=== PATIENT | female | born 1990 | race Caucasian/White ===

== ENCOUNTER 2019-05-17 11:01 | Emergency (ER) | payer MEDICAID ==
[~2019-05-17] VITALS: Ht 162.6 cm; Wt 76.0 kg
[2019-05-17 15:21] VITALS: BP 117/69
== END 2019-05-17 15:23 | disposition home or self-care (01) ==
LOC: ED 12:58
DX: S30.1XXA Contusion of abdominal wall, initial encounter (principal); S30.811A Abrasion of abdominal wall, initial encounter; S30.0XXA Contusion of lower back and pelvis, initial encounter; S70.02XA Contusion of left hip, initial encounter; F17.210 Nicotine dependence, cigarettes, uncomplicated; V03.99XA Pedestrian with other conveyance injured in collision with car, pick-up truck or van, unspecified whether traffic or nontraffic accident, initial encounter; Y93.89 Activity, other specified; Y92.410 Unspecified street and highway as the place of occurrence of the external cause; Y99.8 Other external cause status
CPT/HCPCS: 36415; 72131; 74177; 80048; 82040; 84703; 85025; 96374; 96375; 99284; J2270; J2405

== ENCOUNTER 2019-09-25 12:43 | Emergency (ER) | payer MEDICAID ==
[~2019-09-25] VITALS: Ht 162.6 cm; Wt 80.0 kg
[~2019-09-25 12:43] MED LIST: ABILIFY; AMOX-291 PO; Depakote; IBUP-1222 PO; LAMO25TA5 PO; LAMOTRIGINE; LEVE500T22 PO; PHEN30CA PO; Testosterone
[2019-09-25 12:48] VITALS: BP 105/60
[2019-09-25] MEDS ORDERED: LAMO150T3 PO (12:56)
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
[2019-09-25] MEDS ORDERED: LAMOTRIGINE 100 MG TABLET PO ONE (13:30)
== END 2019-09-25 14:26 | disposition home or self-care (01) ==
LOC: ED 13:35
DX: G40.309 Generalized idiopathic epilepsy and epileptic syndromes, not intractable, without status epilepticus (principal)
CPT/HCPCS: 99283

== ENCOUNTER 2019-10-13 19:45 | Emergency (ER) | payer SELFPAY ==
[~2019-10-13] VITALS: Ht 170.2 cm; Wt 81.1 kg
[~2019-10-13 19:45] MED LIST changes: +LAMO150T3 PO
--- NOTE | 2019-10-13 20:19 | NUR ---
THIS IS A 28 YEAR OLD FEMALE THAT HAD A WITNESSED [facility]URE AT [facility]. ACCORDING TO EMS BYSTANDERS ON SCENE REPORTED THE EVENT LASTING 5 SECONDS. EMS ARRIVED ON SCENE TO FIND A PT AXOX3 AND REPORTING A SEIZURE. PT HAS HX OF SEIZURES AND IS NON-COMPLIENT WITH MEDICATIONS. ACCORDING TO EMS AND PT SHE WAS IN THE PROCESS OF GETTING INTO A GROUP HOUSE AND DECIDED TO BACK OUT SHE WANTS TO BE MORE INDEPENDENT. PT STATES SHE REALIZES NOW SHE NEEDS TO BE IN A SKILLED NURSING AND A STATE SW IS WORKING WITH HER ON PLACEMENT.
[2019-10-13] MEDS ORDERED: LAMOTRIGINE 200 MG TABLET PO ONE (21:00)
--- NOTE | 2019-10-13 21:17 | NUR ---
SPOKE WITH PHARMACY REGARDING LAMICTAL DOSAGE. PER PHARMACY 200MG IS UNSAFE TO RX PT AND PT WOULD NEED TO START THE STARTER PACK AGAIN STARTING AT 25 MG FOR 2 WEEKS THEN TAPER UP.
[2019-10-13] MEDS: LAMOTRIGINE 25 MG TABLET PO ONE (21:30)
[2019-10-13 21:33] VITALS: BP 135/99
--- NOTE | 2019-10-13 22:00 | NUR ---
REPORT FROM LES KRAMER. PT SITTING UP IN RBURNSIDE, DROWSY. EASILY ARROUSABLE TO VOICE. PT A&OX4, SPEECH CLEAR. PT STATES THAT SHE [facility]. IV DC'D. PT OFF MONITORING. AWAITING DC INSTRUCTIONS.
--- NOTE | 2019-10-13 22:25 | NUR ---
PT TRANSFERED SELF TO WHEELCHAIR AT BEDSIDE. DC EDUCATION PROVIDED, PT DEMONSTRATES UNDERSTANDING. UPON DC PT STATES "I NEED YOU TO WRITE A NOTE THAT MAKES THEM LET ME INTO THE LONGTERM". RN STATED THAT WHILE WE WERE HAPPY TO WRITE A NOTE, THERE IS NO GUARANTEE THAT THERE WILL BE A BED AVAILABLE. PT VERBALLY AGGRESSIVE FOLLOWING CONVERSATION. PT PROVIDED TAXI VOUCHER FOR SAFE TRANSPORT TO LONGTERM. PT DRESSED APPROPRIATELY FOR WEATHER.
== END 2019-10-13 22:30 | disposition home or self-care (01) ==
LOC: ED 22:20
DX: R56.9 Unspecified convulsions (principal); F17.210 Nicotine dependence, cigarettes, uncomplicated; Z72.9 Problem related to lifestyle, unspecified
CPT/HCPCS: 93005; 99283

== ENCOUNTER 2019-10-16 13:07 | Emergency (ER) | payer MEDICAID ==
--- NOTE | 2019-10-16 13:56 | NUR ---
QUICK CATH URINE SPECIMEN ATTEMPTED. NO URINE PROVIDED; LANDMARKS CONFIRMED. WILL NOTIFY ERP.
[2019-10-16] MEDS ORDERED: HYDR50CA2 PO (14:02)
[2019-10-16] MEDS ORDERED: LAMO200T2 PO (14:02)
[2019-10-16] MEDS ORDERED: TRAZ-96 PO (14:02)
[2019-10-16] MEDS ORDERED: ARIP10TA15 PO (14:02)
--- NOTE | 2019-10-16 14:08 | NUR ---
ERP NOTIFIED OF NULL QUICK CATH.
[2019-10-16 14:29] LABS: BASOPHILS # (AUTO) 0.01 x10^3/uL (0-0.1); BASOPHILS % (AUTO) 0 % (0-1); EOSINOPHILS # (AUTO) 0.14 x10^3/uL (0-0.4); EOSINOPHILS % (AUTO) 1 % (1-7); LYMPHOCYTES # (AUTO) 1.91 x10^3/uL (1-3.4); LYMPHOCYTES % (AUTO) 20 % (22-44); MD NO; MEAN CORPUSCULAR HEMOGLOBIN 31.3 pg (27.0-34.8); MEAN CORPUSCULAR VOLUME 94.8 fL (80-100); MEAN PLATELET VOLUME 9.6 fL (7.4-10.4); MONOCYTES # (AUTO) 0.57 x10^3/uL (0.2-0.8); MONOCYTES % (AUTO) 6 % (2-9); NEUTROPHILS # (AUTO) 6.97 x10^3/uL (1.8-6.8); NEUTROPHILS % (AUTO) 73 % (42-75); PLATELET COUNT 375 x10^3/uL (130-400); RED BLOOD COUNT 4.17 x10^6/uL (3.82-5.3); RED CELL DISTRIBUTION WIDTH 13.1 % (9.6-15.2)
[2019-10-16] MEDS ORDERED: SODIUM CHLORIDE FLUSH 10ML SYR IVF ONE (14:30)
[2019-10-16] MEDS ORDERED: SODIUM CHLORIDE 0.9% 1,000ML IVBOLUS ONE (14:30)
[2019-10-16 14:42] LABS: ALANINE AMINOTRANSFERASE 45 U/L (12-78); ALBUMIN 3.3 g/dL (3.4-5.0); ANION GAP 3 mmol/L (5-15); CALCIUM 8.7 mg/dL (8.5-10.1); CHLORIDE 107 mmol/L (98-107); CREATININE 0.85 mg/dL (0.55-1.02)
[2019-10-16 14:44] LABS: ALKALINE PHOSPHATASE 77 U/L (45-117); BILIRUBIN,TOTAL 0.2 mg/dL (0.2-1.0); TOTAL PROTEIN 6.6 g/dL (6.4-8.2)
--- NOTE | 2019-10-16 14:45 | NUR ---
IV ATTEMPTED X 1; UNSUCCESSFUL - SEVERE SCARRING FROM IV DRUG USE. WILL SEEK ASSISTANCE.
--- NOTE | 2019-10-16 15:21 | NUR ---
PT DOZING ON BED; EASILY AWAKENED; RESP EVEN & UNLABORED. NS HUNG, INFUSING W-O. IV SITE PATENT.
--- NOTE | 2019-10-16 16:27 | NUR ---
NS INFUSED. PT ASLEEP, RESP EVEN & UNLABORED.
[2019-10-16 16:31] VITALS: BP 113/51
== END 2019-10-16 16:46 | disposition home or self-care (01) ==
LOC: ED 14:51
DX: G40.309 Generalized idiopathic epilepsy and epileptic syndromes, not intractable, without status epilepticus (principal)
CPT/HCPCS: 36415; 80053; 80307; 82140; 83605; 85025; 99283; J7030

== ENCOUNTER 2019-10-29 07:53 | Emergency (ER) | payer MEDICAID ==
[~2019-10-29] VITALS: Ht 162.6 cm; Wt 71.7 kg
[~2019-10-29 07:53] MED LIST changes: +ARIP10TA15 PO; +HYDR50CA2 PO; +LAMO200T2 PO; +TRAZ-96 PO
--- NOTE | 2019-10-29 08:01 | NUR ---
No answer when called for Triage.
[2019-10-29 08:11] VITALS: BP 112/62
[2019-10-29] MEDS ORDERED: LIDOCAINE-MPF 1%, 5ML ONE (08:38)
[2019-10-29] MEDS ORDERED: LIDOCAINE-MPF 1%, 5ML INFIL ONE (09:00)
== END 2019-10-29 09:47 | disposition home or self-care (01) ==
LOC: ED 09:45
DX: L02.411 Cutaneous abscess of right axilla (principal); J06.9 Acute upper respiratory infection, unspecified; R62.50 Unspecified lack of expected normal physiological development in childhood; Z72.9 Problem related to lifestyle, unspecified
CPT/HCPCS: 10060; 71046; 99283

== ENCOUNTER 2019-10-29 23:17 | Emergency (ER) | payer MEDICAID ==
[~2019-10-29] VITALS: Ht 162.6 cm; Wt 65.0 kg
[2019-10-29 23:23] VITALS: BP 125/76
[2019-10-29 23:49] LABS: BASOPHILS # (AUTO) 0.04 x10^3/uL (0-0.1); BASOPHILS % (AUTO) 1 % (0-1); EOSINOPHILS # (AUTO) 0.04 x10^3/uL (0-0.4); EOSINOPHILS % (AUTO) 1 % (1-7); LYMPHOCYTES # (AUTO) 1.45 x10^3/uL (1-3.4); LYMPHOCYTES % (AUTO) 18 % (22-44); MD NO; MEAN CORPUSCULAR HEMOGLOBIN 30.7 pg (27.0-34.8); MEAN CORPUSCULAR HGB CONC 32.7 g/dL (32.4-35.8); MEAN CORPUSCULAR VOLUME 93.8 fL (80-100); MEAN PLATELET VOLUME 10.1 fL (7.4-10.4); MONOCYTES # (AUTO) 0.53 x10^3/uL (0.2-0.8); MONOCYTES % (AUTO) 7 % (2-9); NEUTROPHILS # (AUTO) 5.88 x10^3/uL (1.8-6.8); NEUTROPHILS % (AUTO) 74 % (42-75); PLATELET COUNT 389 x10^3/uL (130-400); RED CELL DISTRIBUTION WIDTH 13.5 % (9.6-15.2)
--- NOTE | 2019-10-29 23:52 | NUR ---
MED REQ SENT
[2019-10-30] LABS: ALBUMIN 3.6 g/dL (3.4-5.0); ANION GAP 5 mmol/L (5-15); CALCIUM 9.2 mg/dL (8.5-10.1); CHLORIDE 105 mmol/L (98-107); CREATININE 0.76 mg/dL (0.55-1.02)
[2019-10-30] MEDS ORDERED: LAMOTRIGINE 200 MG TABLET PO ONE
== END 2019-10-30 00:39 | disposition home or self-care (01) ==
LOC: ED 23:47
DX: G40.309 Generalized idiopathic epilepsy and epileptic syndromes, not intractable, without status epilepticus (principal); R07.89 Other chest pain; R51 Headache
CPT/HCPCS: 36415; 71045; 80048; 82040; 84703; 85025; 93005; 99284

== ENCOUNTER 2019-12-12 01:18 | Emergency (ER) | payer MEDICAID ==
[~2019-12-12 01:18] MED LIST changes: -LAMO200T2 PO; +LAMO200T6 PO
--- NOTE | 2019-12-12 01:42 | NUR ---
med req tubed to pharm
--- NOTE | 2019-12-12 01:53 | NUR ---
pt medicated per mar. poc discussed. pt denies further needs at this time. prior charting in clinical screen states pt is transgender and identifies as he/his. pt denies this and states she was born female and identifies as female. clinical screen adjusted to reflect this.
--- NOTE | 2019-12-12 01:55 | NUR ---
pt furthermore states she does not regularly take antiseizure meds.
[2019-12-12] MEDS ORDERED: LAMOTRIGINE 25 MG TABLET PO ONE (02:00)
[2019-12-12 02:12] LABS: ALBUMIN 3.8 g/dL (3.4-5.0); ANION GAP 8 mmol/L (5-15); CALCIUM 8.8 mg/dL (8.5-10.1); CHLORIDE 104 mmol/L (98-107); CREATININE 0.71 mg/dL (0.55-1.02)
--- NOTE | 2019-12-12 03:01 | NUR ---
received report from LES Botello. chart up for re-check
--- NOTE | 2019-12-12 03:24 | NUR ---
re-evaluation done. patient discharged with prescription and instruction. verbalized understanding.
[2019-12-12 03:25] VITALS: BP 118/70
== END 2019-12-12 03:43 | disposition home or self-care (01) ==
LOC: ED 03:37
DX: G40.319 Generalized idiopathic epilepsy and epileptic syndromes, intractable, without status epilepticus (principal); Z72.9 Problem related to lifestyle, unspecified; F17.210 Nicotine dependence, cigarettes, uncomplicated
CPT/HCPCS: 36415; 80048; 82040; 84703; 93005; 99284

== ENCOUNTER 2020-01-03 21:37 | Emergency (ER) | payer MEDICAID ==
[~2020-01-03] VITALS: Ht 162.6 cm; Wt 66.1 kg
[2020-01-03 21:43] VITALS: BP 146/86
[2020-01-03 22:39] LABS: MICROSCOPIC NOT IND
[2020-01-03 22:47] LABS: CULTURE INDICATED? NO
--- NOTE | 2020-01-03 23:16 | NUR ---
FIELD REPRESENTATIVE/HEALTH EDUCATION: RUTHY CONTACTED ON BEHALF OF PT. DISPATCHER STATES THAT [employer] WAS ONSCENE WHEN [facility] TRANSPORTED PT TO [facility]. ALL NECESSARY DOCUMENTS HAVE BEEN FILED WITH RUTHY
--- NOTE | 2020-01-03 23:36 | NUR ---
PT. TO ROOM FROM LOBBY AT THIS TIME.
--- NOTE | 2020-01-03 23:55 | NUR ---
gas charger: called [facility] hotline as asked for f/u for pt. Filomena will call back to set up time to send pt if they can do exam tonight.
--- NOTE | 2020-01-04 00:22 | NUR ---
SUP: SPOKE WITH PT AND GOT CASE NUMBER FOR [facility]. DEMARCO ASKED THIS RN TO WAIT FOR [facility] RN TO DC PT TO HAVE HER MEET [facility] AT LOCATION DISCLOSED. PRIMARY RN AND DR MAGALLANES AWARE OF POC.
== END 2020-01-04 01:19 | disposition home or self-care (01) ==
LOC: ED 22:37
DX: T74.21XA Adult sexual abuse, confirmed, initial encounter (principal); F17.200 Nicotine dependence, unspecified, uncomplicated; G40.909 Epilepsy, unspecified, not intractable, without status epilepticus
CPT/HCPCS: 81003; 99283

== ENCOUNTER 2020-01-05 14:37 | Emergency (ER) | payer MEDICAID ==
[~2020-01-05] VITALS: Ht 162.6 cm; Wt 65.0 kg
--- NOTE | 2020-01-05 14:40 | NUR ---
PT BIB [facility], WAS AT [facility] AND WAS NOTED TO FALL FROM CHAIR POSITION TO THE GROUND WITH WHAT APPEARED TO BE SEIZURE ACTIVITY. PT DENIES LOC, BLADDER/BOWEL. PT C/O PAIN IN THE NECK D/T FALL, PT ARRIVES IN C SPINE. PT WITH HX SEIZURES HAS BEEN NON COMPLIANT WITH SEIZURE MDICATIONS
[2020-01-05 14:43] VITALS: BP 113/65
[2020-01-05] MEDS ORDERED: KETOROLAC 30 MG/1 ML ONE (14:54)
[2020-01-05] MEDS ORDERED: KETOROLAC 30 MG/1 ML IM ONE (15:00)
[2020-01-05] MEDS ORDERED: LAMOTRIGINE 100 MG TABLET PO ONE (15:02)
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
[2020-01-05 15:18] LABS: ALBUMIN 3.6 g/dL (3.4-5.0); ANION GAP 5 mmol/L (5-15); CALCIUM 8.8 mg/dL (8.5-10.1); CHLORIDE 109 mmol/L (98-107); CREATININE 0.84 mg/dL (0.55-1.02)
== END 2020-01-05 16:09 | disposition home or self-care (01) ==
LOC: ED 15:15
DX: G40.409 Other generalized epilepsy and epileptic syndromes, not intractable, without status epilepticus (principal); R89.2 Abnormal level of other drugs, medicaments and biological substances in specimens from other organs, systems and tissues; F17.210 Nicotine dependence, cigarettes, uncomplicated
CPT/HCPCS: 36415; 80048; 82040; 86705; 86706; 86803; 87340; 87521; 87806; 93005; 96372; 99284; 99406; J1885; G0475

== ENCOUNTER 2020-01-18 08:01 | Inpatient (IN) | payer MEDICAID ==
[2020-01-17] MEDS: SODIUM CHLORIDE 0.9% 1,000 ML IV SCH (22:00)
[~2020-01-18] VITALS: Ht 170.2 cm; Wt 67.5 kg
--- NOTE | 2020-01-18 08:06 | NUR ---
BIB EMS FROM [facility] WHERE STAFF WAS UNABLE TO ARROUSE PATIENT. EMS RPTS FSBS = 55 EMS GAVE 1/2 TUBE GLUCOSE REPEAT FSBS = 91 AND PT ARROUSABLE. PT PRESENTS TO ED, DROWSY BUT FOLLOWS COMMANDS WITH ENCOURAGEMENT. C/O ABD PAIN BUT STATES "I FELT FINE LAST NIGHT" CLOTHES REMOVED BY RN AND PT IN GOWN, NO TEMP. AND BLANKET PROVIDED. ALL MONITORS IN PLACE, EKG COMPLETED. YAHAIRA DYER PA AT BEDSIDE. PT ASSESSMENT POC DISCUSSED.
[2020-01-18] MEDS ORDERED: SODIUM CHLORIDE FLUSH 10ML SYR IVF ONE (08:30)
[2020-01-18] MEDS ORDERED: D5%-0.45% NACL 500 ML IV SCH (08:30)
[2020-01-18] MEDS ORDERED: ONDANSETRON 2MG/ML, 2ML IVPush ONE (08:30)
[2020-01-18] MEDS ORDERED: FLUO20CA23 PO (08:31)
[2020-01-18 08:36] LABS: BASOPHILS # (AUTO) 0.02 x10^3/uL (0-0.1); BASOPHILS % (AUTO) 1 % (0-1); EOSINOPHILS # (AUTO) 0.06 x10^3/uL (0-0.4); EOSINOPHILS % (AUTO) 2 % (1-7); LYMPHOCYTES # (AUTO) 1.44 x10^3/uL (1-3.4); LYMPHOCYTES % (AUTO) 33 % (22-44); MD NO; MEAN CORPUSCULAR HEMOGLOBIN 30.6 pg (27.0-34.8); MEAN CORPUSCULAR HGB CONC 33.8 g/dL (32.4-35.8); MEAN CORPUSCULAR VOLUME 90.6 fL (80-100); MEAN PLATELET VOLUME 9.6 fL (7.4-10.4); MONOCYTES # (AUTO) 0.46 x10^3/uL (0.2-0.8); MONOCYTES % (AUTO) 10 % (2-9); NEUTROPHILS # (AUTO) 2.44 x10^3/uL (1.8-6.8); NEUTROPHILS % (AUTO) 55 % (42-75); PLATELET COUNT 270 x10^3/uL (130-400); RED BLOOD COUNT 4.66 x10^6/uL (3.82-5.3); RED CELL DISTRIBUTION WIDTH 14.3 % (9.6-15.2)
[2020-01-18] MEDS ORDERED: ONDANSETRON 2MG/ML, 2ML ONE (08:44)
[2020-01-18 08:45] LABS: ALANINE AMINOTRANSFERASE 557 U/L (12-78); ALBUMIN 3.6 g/dL (3.4-5.0); ANION GAP 3 mmol/L (5-15); CALCIUM 8.9 mg/dL (8.5-10.1); CHLORIDE 110 mmol/L (98-107); CREATININE 0.81 mg/dL (0.55-1.02)
[2020-01-18 08:48] LABS: ALKALINE PHOSPHATASE 150 U/L (45-117); BILIRUBIN,TOTAL 0.6 mg/dL (0.2-1.0); TOTAL PROTEIN 7.4 g/dL (6.4-8.2)
--- NOTE | 2020-01-18 08:53 | NUR ---
PT MED NOTED AND IVF INFUSING ON IV PUMP W/O DIFFICULTY
[2020-01-18] MEDS ORDERED: ACETAMINOPHEN 500 MG TABLET ONE (09:02)
--- NOTE | 2020-01-18 09:05 | NUR ---
assumed care of pt. report from Bruna SALDANA. [facility] being [facility] this AM difficult to arouse. pt is drowsy but arousable. no apparent resp distress. pt has been medicated and is resting in position of comfort with fluids infusing. no family at bedside.
--- NOTE | 2020-01-18 09:07 | NUR ---
PT MED NOTED FOR DAMON. PT ABLE TO SWALLOW W/O DIFFICULTY. SBAR RPT TO LES CONDON
[2020-01-18] MEDS ORDERED: ACETAMINOPHEN 500 MG TABLET PO ONE (09:30)
--- NOTE | 2020-01-18 10:27 | NUR ---
pt is more awake and is tkaing PO fluids. fluid infusion completed. c/o continued DAMON. no other c/o at this time. no apparent distress
--- NOTE | 2020-01-18 10:42 | NUR ---
pt has been taking PO fluids without difficutly. PO applesauce given. pt OK to D/C when able per Dr. Bazzi
--- NOTE | 2020-01-18 11:30 | NUR ---
pt sleeping heavily.
--- NOTE | 2020-01-18 12:37 | NUR ---
pt sleeping heavily. arousable, but still lethargic
--- NOTE | 2020-01-18 13:05 | NUR ---
atempted to ambulate pt, pt vey groggy and having difficulty following commands. unable to stand at this time. pt tearful
--- NOTE | 2020-01-18 13:30 | NUR ---
fed pt some applesauce. pt tearful and groggy. unable to stand at this time. no family at bedside
--- NOTE | 2020-01-18 13:58 | NUR ---
report to Padmaja SALDANA
--- NOTE | 2020-01-18 14:00 | NUR ---
REPORT RECEIVED FROM LES CONDON.
--- NOTE | 2020-01-18 14:36 | NUR ---
PT LETHARGIC, REFUSING TO SIT UP AT BEDSIDE. NOW C/O ABD PAIN. NOTIFIED. FSBS 89.
--- NOTE | 2020-01-18 15:06 | NUR ---
US IN ROOM.
--- NOTE | 2020-01-18 17:11 | NUR ---
PT DRESSED AND READYH FOR DC. PT RESISTANT TO DC. ERMELINDAIDane CALLED TO ESCORT PT OUT. PT AMBULATED OUT OF ROOM THEN HAD ASSISTED FALL OUTSIDE OF ROOM. SECURITY REPORTS PT THREW ALL WEIGHT BACKWARDS. SECURITY REPORTS PT DID NOT HIT HEAD. SALES CONSULTANT RESIDENTIAL MANAGER, DEPUTY REGISTER OF DEEDS AND OTHER STAFF ASSISTED PT BACK ONTO [facility] PROTOCOLS. AT BEDSIDE FOR EVAL. PT FOLLOWING SIMPLE COMMANDS. PT STATES "IT HRUTS" WILL NOT SPECIFY WHERE PAIN IS COMING FROM. VS STABLE AT THIS TIME. AWAITING ORDERS.
--- NOTE | 2020-01-18 17:30 | NUR ---
TASK RN: PT TAKEN FOR CT
--- NOTE | 2020-01-18 17:45 | NUR ---
TASK RN: BACK IN ROOM FROM CT, AWAITING RESULTS AT THIS TIME
--- NOTE | 2020-01-18 18:08 | NUR ---
CT RESULTED. PT IS UP FOR RECHECK AT THIS TIME.
[2020-01-18 19:38] LABS: SALICYLATE LEVEL 3.2 mg/dL (2.8-20.0)
[2020-01-18] MEDS ORDERED: BISACODYL 10 MG SUPP PR PRN (21:00)
[2020-01-18] MEDS ORDERED: ONDANSETRON ODT 4 MG PO PRN (21:00)
[2020-01-18] MEDS ORDERED: POLYETHYLENE GLYCOL 17 GM PACKET PO PRN (21:00)
[2020-01-18 21:22] LABS: HCG UR SG 1.024 (1.003-1.030); MICROSCOPIC NOT IND
[2020-01-18 21:25] LABS: CULTURE INDICATED? NO
[2020-01-18 21:33] LABS: AMPHETAMINE SCREEN, URINE Positive (Negative); BARBITURATE SCREEN, URINE Negative (Negative); BENZODIAZEPINE SCREEN, URINE Negative (Negative); CANNABINOID SCREEN, URINE Positive (Negative); COCAINE SCREEN, URINE Negative (Negative); METHADONE SCREEN, URINE Negative (Negative); OPIATE SCREEN, URINE Negative (Negative)
[2020-01-18 23:00] VITALS: BP 158/85
[2020-01-19 00:12] VITALS: BP 148/89
[2020-01-19 02:30] VITALS: BP 153/86
[2020-01-19 05:20] LABS: BASOPHILS # (AUTO) 0.02 x10^3/uL (0-0.1); BASOPHILS % (AUTO) 1 % (0-1); EOSINOPHILS # (AUTO) 0.12 x10^3/uL (0-0.4); EOSINOPHILS % (AUTO) 2 % (1-7); LYMPHOCYTES # (AUTO) 1.83 x10^3/uL (1-3.4); LYMPHOCYTES % (AUTO) 38 % (22-44); MD NO; MEAN CORPUSCULAR HEMOGLOBIN 30.8 pg (27.0-34.8); MEAN CORPUSCULAR HGB CONC 33.7 g/dL (32.4-35.8); MEAN CORPUSCULAR VOLUME 91.3 fL (80-100); MEAN PLATELET VOLUME 10.1 fL (7.4-10.4); MONOCYTES # (AUTO) 0.54 x10^3/uL (0.2-0.8); MONOCYTES % (AUTO) 11 % (2-9); NEUTROPHILS # (AUTO) 2.33 x10^3/uL (1.8-6.8); NEUTROPHILS % (AUTO) 48 % (42-75); PLATELET COUNT 265 x10^3/uL (130-400); RED BLOOD COUNT 4.53 x10^6/uL (3.82-5.3); RED CELL DISTRIBUTION WIDTH 14.4 % (9.6-15.2)
[2020-01-19 05:28] LABS: CALCIUM 8.8 mg/dL (8.5-10.1); CHLORIDE 108 mmol/L (98-107)
[2020-01-19 05:36] LABS: ALANINE AMINOTRANSFERASE 548 U/L (12-78); ALBUMIN 3.4 g/dL (3.4-5.0); ALKALINE PHOSPHATASE 140 U/L (45-117); ANION GAP 9 mmol/L (5-15); BILIRUBIN,TOTAL 0.8 mg/dL (0.2-1.0); CREATININE 0.68 mg/dL (0.55-1.02); TOTAL PROTEIN 7.2 g/dL (6.4-8.2)
[2020-01-19 07:19] VITALS: BP 136/98
[2020-01-19] MEDS: SODIUM CHLORIDE 0.9% 1,000 ML IV SCH ×2 (07:48→16:41)
[2020-01-19] MEDS: SENNA/DOCUSATE TABLET PO SCH (09:38)
[2020-01-19 14:24] VITALS: BP 133/76
[2020-01-19 18:57] VITALS: BP 110/68
[2020-01-20 00:42] VITALS: BP 114/73
[2020-01-20] MEDS: SODIUM CHLORIDE 0.9% 1,000 ML IV SCH ×2 (02:32→12:26)
[2020-01-20 05:50] LABS: BASOPHILS # (AUTO) 0.01 x10^3/uL (0-0.1); BASOPHILS % (AUTO) 0 % (0-1); EOSINOPHILS # (AUTO) 0.11 x10^3/uL (0-0.4); EOSINOPHILS % (AUTO) 3 % (1-7); LYMPHOCYTES # (AUTO) 2.08 x10^3/uL (1-3.4); LYMPHOCYTES % (AUTO) 50 % (22-44); MD NO; MEAN CORPUSCULAR HEMOGLOBIN 30.7 pg (27.0-34.8); MEAN CORPUSCULAR HGB CONC 33.4 g/dL (32.4-35.8); MEAN CORPUSCULAR VOLUME 92.1 fL (80-100); MEAN PLATELET VOLUME 10.3 fL (7.4-10.4); MONOCYTES # (AUTO) 0.44 x10^3/uL (0.2-0.8); MONOCYTES % (AUTO) 10 % (2-9); NEUTROPHILS # (AUTO) 1.55 x10^3/uL (1.8-6.8); NEUTROPHILS % (AUTO) 37 % (42-75); PLATELET COUNT 237 x10^3/uL (130-400); RED BLOOD COUNT 4.45 x10^6/uL (3.82-5.3); RED CELL DISTRIBUTION WIDTH 14.1 % (9.6-15.2)
[2020-01-20 05:55] LABS: CHLORIDE 111 mmol/L (98-107)
[2020-01-20 06:01] LABS: ALANINE AMINOTRANSFERASE 385 U/L (12-78); ALBUMIN 3.2 g/dL (3.4-5.0); ALKALINE PHOSPHATASE 127 U/L (45-117); ANION GAP 7 mmol/L (5-15); BILIRUBIN,TOTAL 0.3 mg/dL (0.2-1.0); CALCIUM 8.4 mg/dL (8.5-10.1); CREATININE 0.62 mg/dL (0.55-1.02); TOTAL PROTEIN 6.7 g/dL (6.4-8.2)
[2020-01-20 06:21] LABS: HCG UR SG 1.009 (1.003-1.030)
[2020-01-20] MEDS: SENNA/DOCUSATE TABLET PO SCH (09:00)
[2020-01-20 09:18] VITALS: BP 113/67
== END 2020-01-20 15:10 | disposition home or self-care (01) | DRG 93 ==
LOC: ED 08:24 → EDIP 21:43 → 3N 22:17
PROVIDERS: ADMIT Family Medicine; ATTEND Family Medicine
DX: G92 Toxic encephalopathy (principal); F31.9 Bipolar disorder, unspecified; G40.909 Epilepsy, unspecified, not intractable, without status epilepticus; Z76.5 Malingerer [conscious simulation]; B19.20 Unspecified viral hepatitis C without hepatic coma; F19.10 Other psychoactive substance abuse, uncomplicated
CPT/HCPCS: 36415; 70450; 72125; 76700; 80053; 80074; 80175; 80307; 81003; 81025; 82140; 82962; 83605; 83690; 85025; 87521; 93005; 96365; 96366; 96375; G0378; J2405; J7030

== ENCOUNTER 2020-02-01 04:46 | Emergency (ER) | payer MEDICAID ==
[~2020-02-01] VITALS: Ht 162.6 cm; Wt 54.5 kg
[~2020-02-01 04:46] MED LIST changes: +FLUO20CA23 PO
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
[2020-02-01 05:31] VITALS: BP 121/77
[2020-02-01 05:46] LABS: ALANINE AMINOTRANSFERASE 143 U/L (12-78); ALBUMIN 3.8 g/dL (3.4-5.0); ANION GAP 3 mmol/L (5-15); CALCIUM 9.1 mg/dL (8.5-10.1); CHLORIDE 103 mmol/L (98-107)
[2020-02-01 05:48] LABS: ALKALINE PHOSPHATASE 121 U/L (45-117); BILIRUBIN,TOTAL 0.2 mg/dL (0.2-1.0); TOTAL PROTEIN 7.8 g/dL (6.4-8.2)
--- NOTE | 2020-02-01 06:17 | NUR ---
Pt alert and resting on gurney. Pt given snacks - okay per MD. Awaiting lab results.
--- NOTE | 2020-02-01 06:33 | NUR ---
This RN called lab about CBC results, was told they will check on it and expedite it. PA aware.
[2020-02-01 06:48] LABS: MD YES; MEAN CORPUSCULAR HEMOGLOBIN 30.2 pg (27.0-34.8); MEAN CORPUSCULAR HGB CONC 33.8 g/dL (32.4-35.8); MEAN CORPUSCULAR VOLUME 89.5 fL (80-100); MEAN PLATELET VOLUME 9.9 fL (7.4-10.4); PLATELET COUNT 222 x10^3/uL (130-400); RED BLOOD COUNT 4.67 x10^6/uL (3.82-5.3); RED CELL DISTRIBUTION WIDTH 13.7 % (9.6-15.2)
[2020-02-01 06:50] LABS: BAND#(MANUAL) 0.06 x10^3/uL; BANDS%(MANUAL) 2 % (0-7); EOS#(MANUAL) 0.06 x10^3/uL (0.0-0.4); EOS% (MANUAL) 2 % (1-7); LYMPH#(MANUAL) 1.12 x10^3/uL (1-3.4); LYMPHS% (MANUAL) 40 % (22-44); MONOS#(MANUAL) 0.28 x10^3/uL (0.3-2.7); MONOS% (MANUAL) 10 % (2-9); SEG#(MANUAL) 1.29 x10^3/uL (1.8-6.8); SEGS% (MANUAL) 46 % (42-75)
[2020-02-01 06:51] LABS: <PLATELET ESTIMATE> ADEQUATE; <PLT MORPHOLOGY> NORMAL PLT MORPH; <RBC MORPHOLOGY> NORMAL
--- NOTE | 2020-02-01 06:55 | NUR ---
Report to LES Rivera
--- NOTE | 2020-02-01 06:55 | NUR ---
REPORT FROM LES MANEDL TO ASSUME CARE AT TIME.
== END 2020-02-01 07:11 | disposition home or self-care (01) ==
LOC: ED 05:11
DX: G40.319 Generalized idiopathic epilepsy and epileptic syndromes, intractable, without status epilepticus (principal)
CPT/HCPCS: 36415; 80053; 85025; 99283

== ENCOUNTER 2020-02-13 05:15 | Emergency (ER) | payer MEDICAID ==
[~2020-02-13] VITALS: Ht 162.6 cm; Wt 64.0 kg
[2020-02-13 05:17] VITALS: BP 114/49
--- NOTE | 2020-02-13 05:23 | NUR ---
pt resting on gurney, monitors applied, siderails up x2, call light within reach. awaiting erp eval and orders
[2020-02-13] MEDS ORDERED: LAMOTRIGINE 100 MG TABLET PO ONE (05:30)
== END 2020-02-13 05:55 | disposition home or self-care (01) ==
LOC: ED 05:31
DX: G40.409 Other generalized epilepsy and epileptic syndromes, not intractable, without status epilepticus (principal); Z72.9 Problem related to lifestyle, unspecified
CPT/HCPCS: 99283

== ENCOUNTER 2020-02-14 14:33 | Emergency (ER) | payer MEDICAID ==
[~2020-02-14] VITALS: Ht 162.6 cm; Wt 65.0 kg
--- NOTE | 2020-02-14 14:45 | NUR ---
LAB AT BEDSIDE
--- NOTE | 2020-02-14 14:47 | NUR ---
BIB BY [facility] FOR REPORTED WITNESSED SEIZURE WHILE IN LINE AT THE [facility] ON ARRIVAL [facility] REPORTED NORMAL NEURO EXAM WITH EXCEPTION OF HYPERACTIVITY THOUGHT TO BE D/T RECENT METH USE (PATIENT REPORTES LAST USE LAST NIGHT) FSBS 88 VSS, NO OBVIOS OR REPORTED TRAUMA. DOES NOT APPEAR TOXIC DOES REPORT HX OF SEIZURE MEDICATION-NOT COMPLIANT PATIENT A FEMALE TAKING TESTOTERONE-LAST ADMIN "A FEW MONTHS AGO." SEIZURE PADS PLACED FOR PATIENT SAFETY
[2020-02-14 15:05] LABS: BASOPHILS # (AUTO) 0.02 x10^3/uL (0-0.1); BASOPHILS % (AUTO) 1 % (0-1); EOSINOPHILS # (AUTO) 0.07 x10^3/uL (0-0.4); EOSINOPHILS % (AUTO) 1 % (1-7); LYMPHOCYTES # (AUTO) 1.77 x10^3/uL (1-3.4); LYMPHOCYTES % (AUTO) 32 % (22-44); MD NO; MEAN CORPUSCULAR HEMOGLOBIN 30.3 pg (27.0-34.8); MEAN CORPUSCULAR HGB CONC 33.7 g/dL (32.4-35.8); MEAN CORPUSCULAR VOLUME 89.9 fL (80-100); MEAN PLATELET VOLUME 9.2 fL (7.4-10.4); MONOCYTES # (AUTO) 0.61 x10^3/uL (0.2-0.8); MONOCYTES % (AUTO) 11 % (2-9); NEUTROPHILS # (AUTO) 3.08 x10^3/uL (1.8-6.8); NEUTROPHILS % (AUTO) 55 % (42-75); PLATELET COUNT 293 x10^3/uL (130-400); RED CELL DISTRIBUTION WIDTH 13.9 % (9.6-15.2)
[2020-02-14 15:09] LABS: ALBUMIN 3.6 g/dL (3.4-5.0); ANION GAP 8 mmol/L (5-15); CHLORIDE 108 mmol/L (98-107); CREATININE 0.78 mg/dL (0.55-1.02)
[2020-02-14 15:13] VITALS: BP 131/57
--- NOTE | 2020-02-14 15:15 | NUR ---
REPORT RECEIVED FROM LAURI SALDANA.
== END 2020-02-14 16:10 | disposition home or self-care (01) ==
LOC: ED 16:04
DX: F15.14 Other stimulant abuse with stimulant-induced mood disorder (principal); G40.909 Epilepsy, unspecified, not intractable, without status epilepticus; R51 Headache; F17.200 Nicotine dependence, unspecified, uncomplicated
CPT/HCPCS: 36415; 80048; 82040; 85025; 99283

== ENCOUNTER 2020-02-15 11:38 | Emergency (ER) | payer MEDICAID ==
--- NOTE | 2020-02-15 12:21 | NUR ---
Pt resting in bed, Equal chest rise and cap refill <3 seconds.
--- NOTE | 2020-02-15 12:51 | NUR ---
SECURITY CALLED TO REMOVE RESTRAINTS FOR CT SCAN.
--- NOTE | 2020-02-15 14:30 | NUR ---
BREAK RN: PT SLEEPING RESP EVEN AND UNLABORED.
[2020-02-15 15:51] VITALS: BP 109/64
== END 2020-02-15 17:05 | disposition home or self-care (01) ==
LOC: ED 11:44
DX: S02.652A Fracture of angle of left mandible, initial encounter for closed fracture (principal); S02.2XXA Fracture of nasal bones, initial encounter for closed fracture; M54.2 Cervicalgia; R00.0 Tachycardia, unspecified; X58.XXXA Exposure to other specified factors, initial encounter; Y93.89 Activity, other specified; Y92.488 Other paved roadways as the place of occurrence of the external cause; Y99.8 Other external cause status
CPT/HCPCS: 70450; 70486; 72125; 72170; 93005; 99285

== ENCOUNTER 2020-02-20 18:30 | Emergency (ER) | payer MEDICAID ==
[~2020-02-20] VITALS: Ht 172.7 cm; Wt 67.0 kg
[2020-02-20 18:43] VITALS: BP 108/60
== END 2020-02-20 19:09 | disposition home or self-care (01) ==
LOC: ED 18:56
DX: L01.01 Non-bullous impetigo (principal); F15.10 Other stimulant abuse, uncomplicated; F17.210 Nicotine dependence, cigarettes, uncomplicated
CPT/HCPCS: 99283

== ENCOUNTER 2020-03-05 21:38 | Emergency (ER) | payer MEDICAID ==
[~2020-03-05] VITALS: Ht 162.6 cm; Wt 60.0 kg
[2020-03-05 22:10] LABS: BASOPHILS # (AUTO) 0.03 x10^3/uL (0-0.1); BASOPHILS % (AUTO) 1 % (0-1); EOSINOPHILS # (AUTO) 0.08 x10^3/uL (0-0.4); EOSINOPHILS % (AUTO) 2 % (1-7); LYMPHOCYTES # (AUTO) 2.06 x10^3/uL (1-3.4); LYMPHOCYTES % (AUTO) 38 % (22-44); MD NO; MEAN CORPUSCULAR HEMOGLOBIN 30.4 pg (27.0-34.8); MEAN CORPUSCULAR HGB CONC 33.2 g/dL (32.4-35.8); MEAN CORPUSCULAR VOLUME 91.5 fL (80-100); MEAN PLATELET VOLUME 9.5 fL (7.4-10.4); MONOCYTES # (AUTO) 0.42 x10^3/uL (0.2-0.8); MONOCYTES % (AUTO) 8 % (2-9); NEUTROPHILS # (AUTO) 2.91 x10^3/uL (1.8-6.8); NEUTROPHILS % (AUTO) 53 % (42-75); PLATELET COUNT 342 x10^3/uL (130-400); RED BLOOD COUNT 4.95 x10^6/uL (3.82-5.3)
[2020-03-05 22:22] LABS: ALBUMIN 4.4 g/dL (3.4-5.0); ANION GAP 5 mmol/L (5-15); CALCIUM 9.1 mg/dL (8.5-10.1); CHLORIDE 105 mmol/L (98-107)
[2020-03-05 22:26] LABS: ALANINE AMINOTRANSFERASE 155 U/L (12-78); ALKALINE PHOSPHATASE 132 U/L (45-117); BILIRUBIN,TOTAL 0.3 mg/dL (0.2-1.0); CREATININE 0.76 mg/dL (0.55-1.02); TOTAL PROTEIN 8.7 g/dL (6.4-8.2)
--- NOTE | 2020-03-05 22:49 | NUR ---
PT TO CT
[2020-03-05 23:16] VITALS: BP 130/74
== END 2020-03-05 23:19 | disposition home or self-care (01) ==
LOC: ED 23:16
DX: S09.90XA Unspecified injury of head, initial encounter (principal); R41.3 Other amnesia; F17.210 Nicotine dependence, cigarettes, uncomplicated; Z91.19 Patient's noncompliance with other medical treatment and regimen; Z59.0 Homelessness; X58.XXXA Exposure to other specified factors, initial encounter; Y93.89 Activity, other specified; Y92.89 Other specified places as the place of occurrence of the external cause; Y99.8 Other external cause status
CPT/HCPCS: 36415; 70450; 80053; 84703; 85025; 99284

== ENCOUNTER 2020-05-01 02:07 | Emergency (ER) | payer MEDICAID ==
[~2020-05-01] VITALS: Ht 162.6 cm; Wt 75.0 kg
--- NOTE | 2020-05-01 02:12 | NUR ---
pt LIZZIE POWELL from [facility] where she had an unwitnessed fall out of bed. per report, pt had a friend with her on scene who stated that pt has a seizure disorder and probably had a seizure. upon admit, pt is lethargic, no resp, distress. no tremulous ativity. answers some questions, follows most commands, slow to respond no family at bedside. Dr. Noel at bedside for evaluation
--- NOTE | 2020-05-01 02:29 | NUR ---
pt still lethargic. seizure precautions in place. no apparent distress at this time. EKG has been to bedside warm blankets given for comfort. HOB elevated
--- NOTE | 2020-05-01 02:32 | NUR ---
FSBS WOOD GRINDER OPERATOR 84 per report pt friend states that she takes lomotriine, but is unsure of the dose
--- NOTE | 2020-05-01 02:39 | NUR ---
report to Briana SALDANA
[2020-05-01 02:49] LABS: BASOPHILS # (AUTO) 0.02 x10^3/uL (0-0.1); BASOPHILS % (AUTO) 0 % (0-1); EOSINOPHILS # (AUTO) 0.11 x10^3/uL (0-0.4); EOSINOPHILS % (AUTO) 2 % (1-7); LYMPHOCYTES # (AUTO) 2.42 x10^3/uL (1-3.4); LYMPHOCYTES % (AUTO) 48 % (22-44); MD NO; MEAN CORPUSCULAR HEMOGLOBIN 30.7 pg (27.0-34.8); MEAN CORPUSCULAR HGB CONC 33.4 g/dL (32.4-35.8); MEAN CORPUSCULAR VOLUME 91.9 fL (80-100); MEAN PLATELET VOLUME 9.8 fL (7.4-10.4); MONOCYTES # (AUTO) 0.53 x10^3/uL (0.2-0.8); MONOCYTES % (AUTO) 10 % (2-9); NEUTROPHILS # (AUTO) 1.99 x10^3/uL (1.8-6.8); NEUTROPHILS % (AUTO) 39 % (42-75); PLATELET COUNT 289 x10^3/uL (130-400); RED BLOOD COUNT 4.65 x10^6/uL (3.82-5.3); RED CELL DISTRIBUTION WIDTH 13.3 % (9.6-15.2)
--- NOTE | 2020-05-01 02:51 | NUR ---
RECEIVED REPORT FROM LES CONDON. PT LAYING IN BED, OPENED EYES TO VERBAL STIMULI, REPSONDED APPRORIATELY WHEN LAB WAS AT BEDSIDE. PT ON CARDIAC, BP AND O2 MONITORS. SIDE RAILS UP, CALL LIGHT IN REACH.
[2020-05-01 02:59] LABS: ALBUMIN 4.3 g/dL (3.4-5.0); ANION GAP 7 mmol/L (5-15); CALCIUM 9.2 mg/dL (8.5-10.1); CHLORIDE 107 mmol/L (98-107); CREATININE 0.78 mg/dL (0.55-1.02)
[2020-05-01 03:18] VITALS: BP 108/65
--- NOTE | 2020-05-01 03:19 | NUR ---
PT AROUSABLE TO VERBAL STIMULI. PT SLOW TO RESPOND BUT KNOWS SHE'S IN THE HOSPITAL AND THAT SHE'S HERE BECAUSE SHE HAD A SEIZURE. PT STATES SHE HASN'T TAKEN HER SEIZURE MEDICATION IN 2 NIGHTS BECAUSE SHE "STAYED OUT." STATES THERE IS DRAUMA AT THE [facility]. PT STATES SHE USED METH "A COUPLE DAYS AGO."
--- NOTE | 2020-05-01 03:48 | NUR ---
CONFIRMED NO CT SCAN WITH DR. PLAZA. PT A&OX4, DRESSED SELF FOR D/C. PT GIVEN FOOD, A BLANKET AND MUTUEL DEPARTMENT MANAGER SOCKS AT D/C.
== END 2020-05-01 03:52 ==
LOC: ED 03:30
DX: G40.409 Other generalized epilepsy and epileptic syndromes, not intractable, without status epilepticus (principal)
CPT/HCPCS: 36415; 80048; 80307; 82040; 85025; 93005; 99284

== ENCOUNTER 2020-06-06 08:55 | Emergency (ER) | payer MEDICAID ==
[~2020-06-06] VITALS: Ht 160 cm; Wt 60.0 kg
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
[2020-06-06 09:36] LABS: BASOPHILS # (AUTO) 0.02 x10^3/uL (0-0.1); BASOPHILS % (AUTO) 0 % (0-1); EOSINOPHILS # (AUTO) 0.07 x10^3/uL (0-0.4); EOSINOPHILS % (AUTO) 2 % (1-7); LYMPHOCYTES % (AUTO) 37 % (22-44); MD NO; MEAN CORPUSCULAR HEMOGLOBIN 30.6 pg (27.0-34.8); MEAN CORPUSCULAR HGB CONC 32.8 g/dL (32.4-35.8); MEAN CORPUSCULAR VOLUME 93.2 fL (80-100); MEAN PLATELET VOLUME 9.1 fL (7.4-10.4); MONOCYTES # (AUTO) 0.38 x10^3/uL (0.2-0.8); MONOCYTES % (AUTO) 8 % (2-9); NEUTROPHILS # (AUTO) 2.47 x10^3/uL (1.8-6.8); NEUTROPHILS % (AUTO) 53 % (42-75); PLATELET COUNT 246 x10^3/uL (130-400); RED BLOOD COUNT 4.65 x10^6/uL (3.82-5.3); RED CELL DISTRIBUTION WIDTH 13.1 % (9.6-15.2)
--- NOTE | 2020-06-06 09:55 | NUR ---
Pt resting in gurney locked in lowest position side rails up x 2 call light within reach. Pt drowsy, protecting airway, not requiring oxygen.
[2020-06-06 09:57] LABS: ALANINE AMINOTRANSFERASE 140 U/L (12-78); ALBUMIN 4.2 g/dL (3.4-5.0); ANION GAP 5 mmol/L (5-15); CALCIUM 9.2 mg/dL (8.5-10.1); CHLORIDE 111 mmol/L (98-107)
[2020-06-06 10:00] LABS: ALKALINE PHOSPHATASE 95 U/L (45-117); BILIRUBIN,TOTAL 0.6 mg/dL (0.2-1.0); CREATININE 0.66 mg/dL (0.55-1.02); TOTAL PROTEIN 7.6 g/dL (6.4-8.2)
--- NOTE | 2020-06-06 11:09 | NUR ---
Pt resting in gurney, side rails up x 2, call light within reach bed locked in lowest position. Pt head of bed raised to 30 degress, pt protecting airway, pt not requiring oxygen at this time. Will continue to monitor.
[2020-06-06 12:11] VITALS: BP 125/80
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
--- NOTE | 2020-06-06 12:37 | NUR ---
Pt stated she had an appt and could not be late. Pt PIV removed prior to pt eloping. Pt refused to wait for d/c instructions. Pt left ED a/o x 4 GCS 15 ambulatory without assistance with steady gait.
== END 2020-06-06 12:40 | disposition left against medical advice (07) ==
LOC: EDBD 08:55 → ED 12:15 → MERGE 12:15 → ED 12:40
DX: F15.10 Other stimulant abuse, uncomplicated (principal); R21 Rash and other nonspecific skin eruption
CPT/HCPCS: 36415; 80053; 80307; 82140; 85025; 99283

== ENCOUNTER 2020-06-28 16:34 | Emergency (ER) | payer MEDICAID ==
[~2020-06-28] VITALS: Ht 172.7 cm; Wt 75.0 kg
--- NOTE | 2020-06-28 16:50 | NUR ---
SEE TRIAGE, PT UNABLE TO ANSWER QUESTIONS-POSTICTAL, CONFIRMS NAME ONLY. PT PLACED ON ALL ROOM MONITORING, SEIZURE PADS IN PLACE. EKG DONE ON ARRIVAL.
[2020-06-28] MEDS ORDERED: SODIUM CHLORIDE FLUSH 10ML SYR IVF ONE (17:30)
[2020-06-28] MEDS ORDERED: LORazepam 2 MG/ML, 1ML ONE (17:30)
[2020-06-28] MEDS ORDERED: SODIUM CHLORIDE 0.9% 1,000ML IVBOLUS ONE (17:30)
[2020-06-28] MEDS ORDERED: LORazepam 2 MG/ML, 1ML IVPush ONE (17:30)
[2020-06-28 17:46] LABS: ALANINE AMINOTRANSFERASE 72 U/L (12-78); ALBUMIN 3.6 g/dL (3.4-5.0); ANION GAP 4 mmol/L (5-15); CALCIUM 8.8 mg/dL (8.5-10.1); CHLORIDE 110 mmol/L (98-107); CREATININE 0.69 mg/dL (0.55-1.02)
[2020-06-28 17:51] LABS: ALKALINE PHOSPHATASE 73 U/L (45-117); BILIRUBIN,TOTAL 0.2 mg/dL (0.2-1.0); TOTAL PROTEIN 6.6 g/dL (6.4-8.2)
[2020-06-28 17:53] LABS: MEAN CORPUSCULAR HEMOGLOBIN 30.7 pg (27.0-34.8); MEAN CORPUSCULAR HGB CONC 32.8 g/dL (32.4-35.8); MEAN CORPUSCULAR VOLUME 93.5 fL (80-100); MEAN PLATELET VOLUME 9.6 fL (7.4-10.4); PLATELET COUNT 254 x10^3/uL (130-400); RED BLOOD COUNT 4.07 x10^6/uL (3.82-5.3); RED CELL DISTRIBUTION WIDTH 13.1 % (9.6-15.2)
--- NOTE | 2020-06-28 17:55 | NUR ---
NS BOLUS AND ATIVAN GIVEN PER ERP ORDER. PT WITHOUT SEIZURE ACTIVITY AT THIS TIME. A/O X PERSON, PT STATES SHE CAN'T REMEMBER WHY SHE DIDN'T TAKE MEDS OR IF SHE TOOK MEDS TODAY.
[2020-06-28 18:15] LABS: MD YES
[2020-06-28 18:17] LABS: <RBC MORPHOLOGY> NORMAL; EOS#(MANUAL) 0.05 x10^3/uL (0.0-0.4); EOS% (MANUAL) 1 % (1-7); LYMPH#(MANUAL) 1.92 x10^3/uL (1-3.4); LYMPHS% (MANUAL) 37 % (22-44); MONOS#(MANUAL) 0.16 x10^3/uL (0.3-2.7); MONOS% (MANUAL) 3 % (2-9); REACTIVE LYMPHS % (MANUAL) 2 % (0-0); SEG#(MANUAL) 2.96 x10^3/uL (1.8-6.8); SEGS% (MANUAL) 57 % (42-75)
[2020-06-28 18:18] LABS: <PLATELET ESTIMATE> ADEQUATE; <PLT MORPHOLOGY> NORMAL PLT MORPH
--- NOTE | 2020-06-28 18:20 | NUR ---
ALL RESULTS BACK, PT FOR RECHECK.
--- NOTE | 2020-06-28 19:00 | NUR ---
VSS/UPDATED IN COMPUTER. ATTEMPT TO ROUSE PT TO AMBULATE. PT AROUSABLE WITH PHYSICAL STIMULATION BUT UNABLE TO AMBULATE AT THIS TIME.
--- NOTE | 2020-06-28 19:19 | NUR ---
REPORT FROM LES PEREYRA. PT CARE RESPNSIBILITIES ASSUMED.
[2020-06-28 20:18] VITALS: BP 115/66
--- NOTE | 2020-06-28 21:07 | NUR ---
PT CONTINUES SLEEPING IN BED. PT RESPONSIVE TO STIMULI, BUT STILL VERY DROWSY. RESPIRATIONS EVEN AND UNLABORED. LAST OF FLUIDS INFUSING AT THIS TIME. CALL LIGHT IN REACH.
--- NOTE | 2020-06-28 22:02 | NUR ---
PT CONTINUES DOZING IN BED, MOVING WITH PHSYCIAL STIMULI BUT WILL NOT OPEN EYES OR ANSWER ANY QUESTIONS. STERNAL RUB UTILIZED TO GOOD EFFECT, PT AWAKE AND ANSWERING QUESTIONS APPROPRIATELY. PT PROVIDED WITH DISCHARGE INSTRUCTIONS AND A TAXI VOUCHER, BELONGINGS RETURNED. PT VERBALLY AGGRESSIVE, RUDE, DISMISSIVE, AND CURSING AT STAFF. THIS NURSE ATTEMPTED TO DIRECT PT TOWARDS DISCHARGE DESK, PT ANGRY AND INSULTING IN RETURN, REFUSED ANY ASSISTANCE.
== END 2020-06-28 22:06 | disposition home or self-care (01) ==
LOC: ED 17:23
DX: G40.409 Other generalized epilepsy and epileptic syndromes, not intractable, without status epilepticus (principal)
CPT/HCPCS: 36415; 80053; 80307; 84703; 85025; 93005; 96374; 99284; J2060; J7030

== ENCOUNTER 2020-07-15 15:40 | Emergency (ER) | payer MEDICAID ==
[~2020-07-15] VITALS: Ht 162.6 cm; Wt 64.0 kg
[2020-07-15 15:56] VITALS: BP 119/50
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
--- NOTE | 2020-07-15 16:21 | NUR ---
seizure precaution placed. lab at bedside.
[2020-07-15 16:36] LABS: BASOPHILS # (AUTO) 0.02 x10^3/uL (0-0.1); BASOPHILS % (AUTO) 0 % (0-1); EOSINOPHILS # (AUTO) 0.09 x10^3/uL (0-0.4); EOSINOPHILS % (AUTO) 2 % (1-7); LYMPHOCYTES # (AUTO) 2.37 x10^3/uL (1-3.4); LYMPHOCYTES % (AUTO) 39 % (22-44); MD NO; MEAN CORPUSCULAR HEMOGLOBIN 30.5 pg (27.0-34.8); MEAN CORPUSCULAR HGB CONC 32.3 g/dL (32.4-35.8); MEAN CORPUSCULAR VOLUME 94.4 fL (80-100); MEAN PLATELET VOLUME 9.6 fL (7.4-10.4); MONOCYTES # (AUTO) 0.45 x10^3/uL (0.2-0.8); MONOCYTES % (AUTO) 7 % (2-9); NEUTROPHILS # (AUTO) 3.18 x10^3/uL (1.8-6.8); NEUTROPHILS % (AUTO) 52 % (42-75); PLATELET COUNT 282 x10^3/uL (130-400); RED BLOOD COUNT 4.87 x10^6/uL (3.82-5.3); RED CELL DISTRIBUTION WIDTH 13.3 % (9.6-15.2)
[2020-07-15 16:46] LABS: ALANINE AMINOTRANSFERASE 86 U/L (12-78); ANION GAP 7 mmol/L (5-15); CALCIUM 9.2 mg/dL (8.5-10.1); CHLORIDE 107 mmol/L (98-107); CREATININE 0.73 mg/dL (0.55-1.02)
[2020-07-15 16:48] LABS: ALKALINE PHOSPHATASE 86 U/L (45-117); BILIRUBIN,TOTAL 0.3 mg/dL (0.2-1.0); TOTAL PROTEIN 7.9 g/dL (6.4-8.2)
--- NOTE | 2020-07-15 17:18 | NUR ---
dc instructions reviewed
== END 2020-07-15 17:20 | disposition home or self-care (01) ==
LOC: ED 16:22
DX: R56.9 Unspecified convulsions (principal); R51 Headache; R55 Syncope and collapse; F15.10 Other stimulant abuse, uncomplicated; F17.200 Nicotine dependence, unspecified, uncomplicated
CPT/HCPCS: 36415; 80053; 85025; 93005; 99284

== ENCOUNTER 2021-03-25 11:58 | Emergency (ER) | payer MEDICAID ==
[~2021-03-25] VITALS: Ht 162.6 cm; Wt 65.0 kg
[2021-03-25] MEDS ORDERED: SODIUM CHLORIDE 0.9% 1,000ML IVBOLUS ONE (12:30)
[2021-03-25] MEDS ORDERED: LORazepam 2 MG/ML, 1ML IVPush ONE (12:30)
[2021-03-25] MEDS ORDERED: SODIUM CHLORIDE FLUSH 10ML SYR IVF ONE (12:30)
[2021-03-25 12:41] LABS: BASOPHILS % (AUTO) 1 % (0-1); EOSINOPHILS % (AUTO) 2 % (1-7); LYMPHOCYTES % (AUTO) 44 % (22-44); MEAN CORPUSCULAR HGB CONC 34.6 g/dL (32.4-35.8); MONOCYTES % (AUTO) 10 % (2-9); NEUTROPHILS % (AUTO) 43 % (42-75); PLATELET COUNT 266 x10^3/uL (130-400); RED BLOOD COUNT 4.49 x10^6/uL (3.82-5.3); RED CELL DISTRIBUTION WIDTH 12.7 % (9.6-15.2)
[2021-03-25 12:50] LABS: MD NO
[2021-03-25 12:53] LABS: ALANINE AMINOTRANSFERASE 48 U/L (12-78); ALBUMIN 4.1 g/dL (3.4-5.0); ANION GAP 6 mmol/L (5-15); CALCIUM 8.9 mg/dL (8.5-10.1); CHLORIDE 112 mmol/L (98-107)
[2021-03-25 12:57] LABS: ALKALINE PHOSPHATASE 69 U/L (45-117); BILIRUBIN,TOTAL 0.3 mg/dL (0.2-1.0); TOTAL PROTEIN 7.7 g/dL (6.4-8.2)
--- NOTE | 2021-03-25 13:29 | NUR ---
PT UP TO RESTROOM ON STEADY GAIT.
[2021-03-25] MEDS ORDERED: ACETAMINOPHEN 500 MG TABLET PO ONE (13:30)
[2021-03-25 13:50] VITALS: BP 119/75
== END 2021-03-25 13:52 | disposition home or self-care (01) ==
LOC: ED 13:11
DX: G44.319 Acute post-traumatic headache, not intractable (principal); M54.2 Cervicalgia; R56.9 Unspecified convulsions; F17.210 Nicotine dependence, cigarettes, uncomplicated
CPT/HCPCS: 36415; 70450; 72125; 80053; 80320; 84703; 85025; 93005; 99406; G0480

== ENCOUNTER 2021-05-12 23:39 | Emergency (ER) | payer MEDICAID ==
[~2021-05-12] VITALS: Ht 167.6 cm; Wt 80.0 kg
[~2021-05-12 23:39] MED LIST changes: -ARIP10TA15 PO; +ARIP10TA54 PO
[2021-05-13] MEDS ORDERED: LAMOTRIGINE 200 MG TABLET PO ONE
--- NOTE | 2021-05-13 00:04 | NUR ---
ERIC C/O SEZURE. EMS CALLED AFTER A PASSER-BY SAW "FLAILING AROUND ON SIDE OF ROAD." HX OF SEIZURES. BLOOD SUGAR UPON EMS ARRIVAL 36, D10 GIVEN REPEAT BLOOD SUGAR 190. PT NOT COMPLIANT WITH ANTI SEIZURE MEDICATIONS. SEIZURE PRECAUTIONS IN PLACE. ALL MONITORS ATTACHED. EKG COMPLETED UPON ARRIVAL TO ER.
--- NOTE | 2021-05-13 00:07 | NUR ---
MED REQ TUBED TO PHARM
[2021-05-13 00:20] LABS: BASOPHILS % (AUTO) 0 % (0-1); EOSINOPHILS % (AUTO) 2 % (1-7); LYMPHOCYTES % (AUTO) 43 % (22-44); MEAN CORPUSCULAR HEMOGLOBIN 31.5 pg (27.0-34.8); MEAN CORPUSCULAR HGB CONC 34.2 g/dL (32.4-35.8); MEAN PLATELET VOLUME 10.4 fL (7.4-10.4); MONOCYTES % (AUTO) 7 % (2-9); NEUTROPHILS % (AUTO) 48 % (42-75); PLATELET COUNT 197 x10^3/uL (130-400); RED BLOOD COUNT 4.41 x10^6/uL (3.82-5.3); RED CELL DISTRIBUTION WIDTH 12.8 % (9.6-15.2)
[2021-05-13 00:27] LABS: ALANINE AMINOTRANSFERASE 30 U/L (12-78); ALBUMIN 3.9 g/dL (3.4-5.0); ANION GAP 4 mmol/L (5-15); CALCIUM 9.2 mg/dL (8.5-10.1); CHLORIDE 108 mmol/L (98-107); CREATININE 0.74 mg/dL (0.55-1.02)
[2021-05-13 00:31] LABS: ALKALINE PHOSPHATASE 69 U/L (45-117); BILIRUBIN,TOTAL 0.4 mg/dL (0.2-1.0); TOTAL PROTEIN 7.5 g/dL (6.4-8.2)
--- NOTE | 2021-05-13 00:48 | NUR ---
PT GOING TO CT AT THIS TIME
[2021-05-13 01:44] VITALS: BP 112/64
== END 2021-05-13 03:12 | disposition home or self-care (01) ==
LOC: ED 23:40
DX: G40.309 Generalized idiopathic epilepsy and epileptic syndromes, not intractable, without status epilepticus (principal); F15.10 Other stimulant abuse, uncomplicated; R51.9 Headache, unspecified; Z72.9 Problem related to lifestyle, unspecified; F17.210 Nicotine dependence, cigarettes, uncomplicated
CPT/HCPCS: 36415; 70450; 80053; 80320; 82962; 84703; 85025; 93005; 99406; G0480

== ENCOUNTER 2021-05-15 16:27 | Inpatient (IN) | payer MEDICAID ==
[~2021-05-15] VITALS: Ht 162.6 cm; Wt 70.0 kg
[2021-05-15] MEDS ORDERED: ONDANSETRON ODT 4 MG PO PRN (17:00)
[2021-05-15] MEDS ORDERED: POLYETHYLENE GLYCOL 17 GM PACKET PO PRN (17:00)
[2021-05-15] MEDS ORDERED: DOCUSATE 100 MG CAPSULE PO PRN (17:00)
[2021-05-15] MEDS ORDERED: ACETAMINOPHEN 325 MG TABLET PO PRN (17:00)
[2021-05-15] MEDS ORDERED: BISACODYL 10 MG SUPP PR PRN (17:00)
[2021-05-15 23:40] VITALS: BP 111/68
[2021-05-16 05:34] LABS: CHOL/HDL RATIO 3.2; FREE T4 (FREE THYROXINE) 0.97 ng/dL (0.76-1.46); LDL/HDL RATIO 1.7 (0.5-3.0)
[2021-05-16 07:33] VITALS: BP 101/61
[2021-05-16] MEDS: NICOTINE 14MG/24 HR PATCH.TD24 TD SCH (09:28)
[2021-05-16] MEDS ORDERED: OLANZAPINE 10 MG INJ IM STA (15:29)
[2021-05-16] MEDS ORDERED: POTASSIUM CHLORIDE 20 MEQ TAB.ER.PRT PO ONE (16:30)
[2021-05-16 19:48] LABS: MICROSCOPIC NOT IND
[2021-05-16] MEDS: LAMOTRIGINE 200 MG TABLET PO SCH (21:13)
[2021-05-17 07:11] VITALS: BP 108/69
[2021-05-17] MEDS: NICOTINE 14MG/24 HR PATCH.TD24 TD SCH (08:28)
[2021-05-17] MEDS ORDERED: BUPR100T7 PO (11:19)
[2021-05-17] MEDS ORDERED: LEVE750T37 PO (11:19)
[2021-05-17] MEDS: ESCITALOPRAM 10MG TABLET PO SCH (12:43)
[2021-05-17] MEDS: LEVETIRACETAM 500 MG TABLET PO SCH ×2 (12:45→20:20)
[2021-05-17 18:40] VITALS: BP 100/62
[2021-05-17] MEDS: LAMOTRIGINE 200 MG TABLET PO SCH (20:19)
[2021-05-18 07:40] VITALS: BP 102/68
[2021-05-18] MEDS: NICOTINE 14MG/24 HR PATCH.TD24 TD SCH (09:24)
[2021-05-18] MEDS: ESCITALOPRAM 10MG TABLET PO SCH (09:25)
[2021-05-18] MEDS: LEVETIRACETAM 500 MG TABLET PO SCH ×2 (09:25→20:39)
[2021-05-18 20:00] VITALS: BP 102/60
[2021-05-18] MEDS: LAMOTRIGINE 200 MG TABLET PO SCH (20:39)
[2021-05-18] MEDS ORDERED: SODIUM CHLORIDE NASAL SPRAY 45ML BOTTLE NAS PRN (21:30)
[2021-05-19 07:35] VITALS: BP 111/73
[2021-05-19] MEDS: LEVETIRACETAM 500 MG TABLET PO SCH ×2 (09:00→20:44)
[2021-05-19] MEDS: NICOTINE 14MG/24 HR PATCH.TD24 TD SCH (09:00)
[2021-05-19] MEDS: ESCITALOPRAM 10MG TABLET PO SCH (09:00)
[2021-05-19 19:28] VITALS: BP 107/67
[2021-05-19] MEDS: LAMOTRIGINE 200 MG TABLET PO SCH (20:44)
[2021-05-20 07:27] VITALS: BP 112/73
[2021-05-20] MEDS: ESCITALOPRAM 10MG TABLET PO SCH (08:09)
[2021-05-20] MEDS: NICOTINE 14MG/24 HR PATCH.TD24 TD SCH (08:17)
[2021-05-20] MEDS: LEVETIRACETAM 500 MG TABLET PO SCH (08:20)
[2021-05-20] MEDS ORDERED: ESCI10TA97 PO (08:26)
== END 2021-05-20 09:00 | disposition home or self-care (01) | DRG 885 ==
LOC: 3E 18:02
PROVIDERS: ADMIT Psychiatry & Neurology Psychosomatic Medicine; ATTEND Psychiatry & Neurology Psychosomatic Medicine
DX: F31.30 Bipolar disorder, current episode depressed, mild or moderate severity, unspecified (principal); R45.851 Suicidal ideations; F15.20 Other stimulant dependence, uncomplicated; G40.909 Epilepsy, unspecified, not intractable, without status epilepticus; E87.6 Hypokalemia; K59.00 Constipation, unspecified; F17.210 Nicotine dependence, cigarettes, uncomplicated; F43.10 Post-traumatic stress disorder, unspecified; Z79.899 Other long term (current) drug therapy; Z59.0 Homelessness; Z88.8 Allergy status to other drugs, medicaments and biological substances; Z78.1 Physical restraint status
CPT/HCPCS: 36415; 71045; 80053; 80061; 80299; 80307; 80320; 80329; 81003; 82140; 84439; 84443; 84703; 85025; 87426; 93005; G0480

== ENCOUNTER 2021-06-25 20:03 | Emergency (ER) | payer MEDICAID ==
[~2021-06-25] VITALS: Ht 162.6 cm; Wt 61.6 kg
[~2021-06-25 20:03] MED LIST changes: +BUPR100T7 PO; +ESCI10TA97 PO; +LEVE750T37 PO
[2021-06-25 21:02] VITALS: BP 124/53
[2021-06-25] MEDS ORDERED: LIDOCAINE-MPF 1%, 5ML INFIL ONE (21:30)
[2021-06-25] MEDS ORDERED: LIDOCAINE-MPF 1%, 5ML ONE (23:28)
--- NOTE | 2021-06-25 23:52 | NUR ---
PATIENT CLEARED FOR DISCHARGE. VERBALIZED UNDERSTANDING OF SELF CARE AND FOLLOW UP CARE AT HOME. PATIENT GIVEN SUPPLIES TO IMPROVE OUTPATIENT COMPLIANCE. AMBULATORY TO DISCHARGE DESK WITHOUT COMPLICATIONS WITH BELONGINGS.
== END 2021-06-25 23:54 | disposition home or self-care (01) ==
LOC: ED 23:26
DX: L03.114 Cellulitis of left upper limb (principal); Z72.9 Problem related to lifestyle, unspecified; G40.909 Epilepsy, unspecified, not intractable, without status epilepticus
CPT/HCPCS: 99283